=== PATIENT | female | born 1990 | race Hispanic/Latino ===

== ENCOUNTER 2017-12-25 10:31 | Emergency (ER) | payer BC, OTHER ==
[2017-12-25 10:43] VITALS: TEMP 98.7; O2SAT 99
--- NOTE | 2017-12-25 11:01 | ED PDOC ---
HPI: General Adult Time Seen by Provider: 12/25/17 11:00 Chief Complaint (Provider): with vaginal bleeding History Per: Patient Additional Complaint(s): 27-year-old female approximately 5 weeks based on LMP (Nov 20) presents to emergency department with abdominal pain and vaginal bleeding that started 3 days ago. Patient contacted her OB in [facility] and was told to come to nearest emergency room. She has light spotting at this time but states the cramping pain has increased and is mostly right-sided. She denies nausea or vomiting, no fever or chills. This patient's first , no history of ectopic or miscarriages OB: in [facility] Past Medical History Reviewed: Historical Data, Nursing Documentation, Vital Signs Vital Signs: Last Vital Signs Temp 98.7 F 12/25/17 10:42 Pulse 95 H 12/25/17 10:42 Resp 20 12/25/17 10:42 BP 112/68 12/25/17 10:42 Pulse Ox 99 12/25/17 11:37 - Medical History PMH: No Chronic Diseases - Surgical History Surgical History: No Surg Hx - Family History Family History: States: No Known Family Hx - Living Arrangements Living Arrangements: With Family - Social History Current smoker - smoking cessation education provided: No Alcohol: None Drugs: Denies - Home Medications Home Medications: Ambulatory Orders Medication Instructions Recorded No Known Home Med 11/29/16 - Allergies Allergies/Adverse Reactions: Allergies Allergy/AdvReac Type Severity Reaction Status Date / Time Sulfa (Sulfonamide Allergy RASH Verified 12/25/17 11:02 Antibiotics) Review of Systems ROS Statement: Except As Marked, All Systems Reviewed And Found Negative Constitutional: Negative for: Fever Cardiovascular: Negative for: Chest Pain Respiratory: Negative for: Cough Gastrointestinal: Negative for: Nausea, Vomiting, Diarrhea Genitourinary Female: Positive for: Pelvic Pain. Negative for: Dysuria, Frequency, Incontinence, Hematuria, Vaginal Discharge Physical Exam - Reviewed Nursing Documentation Reviewed: Yes Vital Signs Reviewed: Yes - Physical Exam Appears: Positive for: Well, Non-toxic, No Acute Distress Skin: Positive for: Rash Cardiovascular/Chest: Positive for: Regular Rate, Rhythm Respiratory: Positive for: Normal Breath Sounds Gastrointestinal/Abdominal: Positive for: Soft. Negative for: Tenderness, Distended, Guarding, Rebound Back: Negative for: L CVA Tenderness, R CVA Tenderness Neurologic/Psych: Positive for: Alert, Oriented - Laboratory Results Result Diagrams: 12/25/17 12:53 12/25/17 12:53 Urine POC: Positive Urine dip results: Positive for: Blood (moderate). Negative for: Leukocyte Esterase, Nitrate, Ketones, Glucose, Bilirubin, Protein - ECG O2 Sat by Pulse Oximetry: 99 Pulse Ox Interpretation: Normal - Other Rad TV OB US X-Ray: Read By Radiologist X-Ray Interpretation: no IUP, no ectopic Medical Decision Making Medical Decision Makin27 year old female with vaginal bleeding and pelvic pain Plan: Urine dip Urine test CBC CMP Blood type Beta quant OB TV US Beta is only 167 - early vs possible miscarriage. Patient is aware of all diagnostic testing results, all questions answered. Copies of ultrasound and blood work provided for patient. Patient has follow-up this coming with her OB. Disposition - Clinical Impression Clinical Impression: Vaginal bleeding during - Patient ED Disposition Is Patient to be Admitted: No Counseled Patient/Family Regarding: Studies Performed, Diagnosis, Need For Followup - Disposition [facility]errals[facility] Disposition: Routine/Home Disposition Time: 14:31 Condition: STABLE Additional Instructions: Follow-up with OB in 2-3 days. Instructions: Bleeding With Results - Lab Results Lab Results: 12/25/17 12/25/17 12/25/17 13:35 12:53 12:53 WBC 4.0 L RBC 4.19 Hgb 13.0 Hct 38.8 MCV 92.6 MCH 30.9 MCHC 33.4 RDW 13.2 Plt Count 166 MPV 9.7 Neut % (Auto) 56.7 Lymph % (Auto) 22.5 [place] % (Auto) 18.2 H Eos % (Auto) 1.5 Baso % (Auto) 1.1 Neut # (Auto) 2.3 Lymph # (Auto) 0.9 L [place] # (Auto) 0.7 Eos # (Auto) 0.1 Baso # (Auto) 0.0 Sodium 145 Potassium 4.1 Chloride 106 Carbon Dioxide 27 Anion Gap 16 BUN 10 Creatinine 0.7 Est GFR ( Amer) > 60 Est GFR (Non-Af Amer) > 60 Random Glucose 93 Calcium 10.4 H Total Bilirubin 0.4 AST 31 ALT 32 Alkaline Phosphatase 40 Total Protein 7.9 Albumin 4.5 Globulin 3.4 Albumin/Globulin Ratio 1.3 Beta HCG, Quant 167.93 Blood Type Blood Type Confirm A POSITIVE Antibody Screen BBK History Checked 12/25/17 12:53 WBC RBC Hgb Hct MCV MCH MCHC RDW Plt Count MPV Neut % (Auto) Lymph % (Auto) [place] % (Auto) Eos % (Auto) Baso % (Auto) Neut # (Auto) Lymph # (Auto) [place] # (Auto) Eos # (Auto) Baso # (Auto) Sodium Potassium Chloride Carbon Dioxide Anion Gap BUN Creatinine Est GFR ( Amer) Est GFR (Non-Af Amer) Random Glucose Calcium Total Bilirubin AST ALT Alkaline Phosphatase Total Protein Albumin Globulin Albumin/Globulin Ratio Beta HCG, Quant Blood Type A POSITIVE Blood Type Confirm Antibody Screen Negative BBK History Checked No verified bt
[2017-12-25 12:59] LABS: BASO % 1.1 % (0.0-2.0); EOS # 0.1 K/uL (0.0-0.7); EOS % 1.5 % (0.0-4.0); LYMPH # 0.9 K/uL (1.0-4.3); LYMPH % 22.5 % (20.0-40.0); MEAN CELL VOLUME 92.6 fl (81.0-99.0); MEAN CORPUSCULAR HEMOGLOBIN 30.9 pg (27.0-31.0); MEAN CORPUSCULAR HGB CONC 33.4 g/dL (33.0-37.0); MEAN PLATELET VOLUME 9.7 fl (7.2-11.7); MONO # 0.7 K/uL (0.0-0.8); MONO % 18.2 % (0.0-10.0); NEUT # 2.3 K/uL (1.8-7.0); NEUT % 56.7 % (50.0-75.0); NRBC % 0.1 % (0.0-0.0); RBC 4.19 Mil/uL (3.80-5.20); RED CELL DISTRIBUTION WIDTH 13.2 % (11.5-14.5)
[2017-12-25 13:13] LABS: ALB/GLOB RATIO 1.3 (1.0-2.1); ALBUMIN 4.5 g/dL (3.5-5.0); ALT/SGPT 32 U/L (9-52); AST/SGOT 31 U/L (14-36); BLOOD UREA NITROGEN 10 mg/dl (7-17); CALCIUM 10.4 mg/dL (8.4-10.2); GFR AFRICAN-AMERICAN > 60; GFR NON-AFRICAN AMERICAN > 60
--- NOTE | 2017-12-25 14:12 | US ---
HISTORY: Approximately 5 weeks presenting with pain and bleeding. LMP 11/01/2017 COMPARISON: None available. TECHNIQUE: Transvaginal only. Real -time technique with 2D, duplex and color Doppler FINDINGS: UTERUS: Measures 3.3 x 4.1 x 6.3 cm. Normal in size and appearance. No fibroid or other mass lesion seen. ENDOMETRIUM: Measures 5.9 mm in diameter. No ultrasound findings to suggest gestational sac, fluid, debris, mass or polyp or other pathologic process within the endometrium. CERVIX: No cervical abnormality identified.Incidental finding: Nabothian cysts the largest measures less than 6 mm RIGHT OVARY: Measures 1.8 x 2.7 x 3.5 cm. No solid mass. Normal flow. Multiple subcentimeter follicles. LEFT OVARY: Measures 1.4 x 2.2 x 2.8 cm. No solid mass. Normal flow. Multiple subcentimeter follicles. FREE FLUID: Trace free fluid identified in the pelvis/cul de sac. OTHER FINDINGS: None. IMPRESSION: No identifiable products within the uterus. Unremarkable endometrial echo complex. No visible ectopic gestation.
[2017-12-25 15:40] VITALS: BP 116/70; PULSE 89; RESP 18
== END 2017-12-25 14:54 | disposition home or self-care (01) ==
LOC: H.ER 10:31
DX: O20.9 Hemorrhage in early pregnancy, unspecified (principal); Z3A.01 Less than 8 weeks gestation of pregnancy